=== PATIENT | female | born 1945 | race Caucasian/White ===

== ENCOUNTER 2018-01-31 11:06 | Emergency (ER) | payer MEDICARE, BC ==
[~2018-01-31] VITALS: Ht 165.1 cm; Wt 56.7 kg
--- OUTSIDE RECORDS SUMMARY | ~2018-01-31 | XMS | Clinical Summary ---
Demographics + + + | Address | [address] | | | [place] [address] | + + + | Home Phone | | + + + | Preferred Language | Unknown | + + + | Marital Status | | + + + | Confucianist Affiliation | Unknown | + + + | Race | White | + + + | Ethnic Group | Not or | + + + Author + + + | Organization | Unknown | + + + | Address | Unknown | + + + | Phone | Unavailable | + + + Support + + + + + | Name | Relationship | Address | Phone | + + + + + | JOSE HARRY | ECON | [address] | | | | [place], | | | | | [place] [address] | | + + + + + Care Team Providers + +------+ + | Care Customer Assistance Representative Name | Role | Phone | + +------+ + PP | Unavailable | + +------+ + Source Comments GIUSEPPE is fully live on both [facility] and [facility] InPatient.[facility] Allergies Not on File Current Medications Not on file Active Problems Not on file Social History + +-------+ +--------+------+ | Tobacco Use | Types | Packs/Day | Years | Date | | | | | Used | | + +-------+ +--------+------+ | Never Assessed | | | | | + +-------+ +--------+------+ + + + | Sex Assigned at | Date Recorded | | | | + + + | Not on file | | + + + Plan of Treatment + + + + + | Health Maintenance | Due Date | Last Done | Comments | + + + + + | INFLUENZA VACCINE | | | | | (FLU SHOT) | 8 | | | + + + + + Results Not on filefrom Last 3 Months"
--- OUTSIDE RECORDS SUMMARY | ~2018-01-31 | XMS | Clinical Summary ---
Demographics + + + | Address | [address] | | | [place] [address] | + + + | Home Phone | | + + + | Preferred Language | Unknown | + + + | Marital Status | | + + + | Pentecostal Affiliation | Unknown | + + + [...] [place], | | | | | [place] [address] | | + + + + + Care Team Providers + +------+ + | Care Sheet Catcher Name | Role | Phone | + +------+ + PP | Unavailable | + +------+ + Source Comments GIUSEPPE is fully live on both [facility] and [facility] InPatient.[facility] Allergies Not on File Current Medications [...]
[2018-01-31] MEDS ORDERED: HYDROCHLOROTHIA50 MG PO (11:58)
[2018-01-31] MEDS ORDERED: ROPINIROLE HCL2 MG PO (11:58)
[2018-01-31] MEDS ORDERED: LEVOTHYROXINE100 MCG PO (11:58)
[2018-01-31] MEDS ORDERED: SUMATRIPTAN SU100 MG PO (11:58)
[2018-01-31] MEDS ORDERED: BUTALB-CAFF-AC1 EACH PO (11:59)
[2018-01-31] MEDS ORDERED: ASPIR-LOW81 MG PO (11:59)
[2018-01-31] MEDS ORDERED: MECLIZINE HCL25 MG PO (12:00)
[2018-01-31] MEDS ORDERED: FLAGYL500 MG PO (14:15)
== END 2018-01-31 14:55 | disposition home or self-care (01) ==
LOC: ED 11:06
DX: R19.7 Diarrhea, unspecified (principal); Z88.7 Allergy status to serum and vaccine; Z79.899 Other long term (current) drug therapy; Z79.82 Long term (current) use of aspirin
CPT/HCPCS: 36415; 80053; 81001; 82310; 83970; 85025; 99283; J7030

== ENCOUNTER 2018-04-11 06:20 | Day surgery (SDC) | payer MEDICARE, BC ==
[~2018-04-11] VITALS: Ht 165.1 cm; Wt 58.5 kg
[~2018-04-11 06:20] MED LIST: ASPIR-LOW81 MG PO; BUTALB-CAFF-AC1 EACH PO; CALCIUM600 MG PO; FISH OIL 1,0001 EAC2 NG; FLAGYL500 MG PO; HYDROCHLOROTHIA50 MG PO; LEVOTHYROXINE100 MCG PO; MECLIZINE HCL25 MG PO; MULTIVITAMINS1 EAC7 PO; ROPINIROLE HCL2 MG PO; SUMATRIPTAN SU100 MG PO; VITAMIN C1000 MG
--- NOTE | 2018-04-11 08:36 | NUR ---
04/11/18 0836 Amber Goss PT WOKE UP TALKED WITH SOUNDS OF CHILD CRYING.
--- NOTE | 2018-04-12 07:52 | OR ---
[facility] [address] [place], [place] [address] Signed DATE OF OPERATION: 04/11/2018 SURGEON: Ricky Grace MD PREOPERATIVE DIAGNOSIS: Mother with a history of colonic polyps in her 70s. POSTOPERATIVE DIAGNOSIS: Minimal sigmoid diverticulosis. PROCEDURE: Colonoscopy without biopsy. ESTIMATED BLOOD LOSS: None. 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 She was asked to see me for a followup colonoscopy. She told me her mother had a villous adenomatous polyp removed from her colon in her 70s. Gypsy told me her last colonoscopy was in 2008, while living in [place]. Apparently, they told her to come back in 10 years. In the meantime, she says she is doing well and enjoying her intermediate. In the office, I had given her a pamphlet on colonoscopy and we looked at that along with the risks including, but not limited to gas bloating, crampy abdominal pain, bleeding, perforation, requiring surgery, and missed diagnosis. We also discussed the need for IV conscious sedation. She had expressed understanding and wished to proceed. She does have some positional vertigo, particularly when lying on her left side and so we kept her in the supine position for her procedure. PROCEDURE NOTE: Gypsy was taken into our endoscopy suite and placed in the supine position. She was given divided doses of 175 mcg of fentanyl and 8 mg of Versed in order to cover the procedure. A digital rectal exam was performed and this was unremarkable. The adult colonoscope was introduced and advanced under direct visualization of camera all the way into the cecum. Her prep was good. We did use additional sedation along with abdominal compression in order to get the scope to pass directly into the cecum itself. The scope was then slowly withdrawn. We saw a few diverticula in the sigmoid colon. There was no evidence of any polyps. The rectum was unremarkable. Upon retroflexion of the scope, there was no additional pathology noted above the anal canal. After this, the gas was suctioned out and the colonoscope removed. Gypsy tolerated the procedure quite well. Electronically Signed By: RICKY GRACE MD 04/12/18 0752 PATIENT NAME: GYPSY HARRY OPERATIVE REPORT DATE OF : 49 REPORT #: [id number] PHYSICIAN: RICKY GRACE MD PCP: UNASSIGNED DOCTOR REPORT IS CONFIDENTIAL AND NOT TO BE RELEASED WITHOUT AUTHORIZATION [address] [place] [address] Signed RECOMMENDATIONS: Gypsy will follow up in my office in 5 years for repeat colonoscopy. MD ZAC Real/[place]IR[place] /[id number] cc: MD Darrin Anderson [place] Andrew L Bower, MD Copies: RICKY GRACE MD ~ Electronically Signed By: RICKY GRACE MD 04/12/18 0752 PATIENT NAME: GYPSY HARRY OPERATIVE REPORT DATE OF : 49 REPORT #: [id number] PHYSICIAN: RICKY GRACE MD PCP: UNASSIGNED DOCTOR REPORT IS CONFIDENTIAL AND NOT TO BE RELEASED WITHOUT AUTHORIZATION
== END 2018-04-11 09:03 | disposition home or self-care (01) ==
LOC: DS 06:20 → OPS 06:20 → DS 06:45 → OPS 09:03
PROVIDERS: Colon & Rectal Surgery
PROC: 0DJD8ZZ Inspection of Lower Intestinal Tract, Via Natural or Artificial Opening Endoscopic (ICD-10-PCS; principal; 2018-04-11 06:45)
DX: Z12.11 Encounter for screening for malignant neoplasm of colon (principal); K57.30 Diverticulosis of large intestine without perforation or abscess without bleeding; Z83.71 Family history of colonic polyps; Z91.040 Latex allergy status; Z79.82 Long term (current) use of aspirin; Z79.899 Other long term (current) drug therapy
CPT/HCPCS: 99153; G0500; J2250; J3010; J7120

== ENCOUNTER 2021-05-12 17:34 | Emergency (ER) | payer MEDICARE, BC ==
[~2021-05-12] VITALS: Ht 165.1 cm; Wt 58.5 kg
[2021-05-12] MEDS ORDERED: SERTRALINE HCL25 MG PO (17:41)
--- NOTE | 2021-05-12 18:47 | EKG ---
[facility] [address] [facility] [place], [place] [address] Signed Sinus bradycardia with premature atrial complexes Left axis deviation Nonspecific intraventricular block Cannot rule out Septal infarct , age undetermined Abnormal ECG No previous ECGs available Confirmed by CRISTA MEDINA DO ([id number]) on 05/12/2021 6:46:58 PM Electronically Signed By: CRISTA MEDINA DO 05/12/21 1847 PATIENT NAME: JAY HARRY [facility] Electrocardiogram DATE OF : 49 PHYSICIAN: CRISTA MEDINA DO REPORT #: [id number] REPORT IS CONFIDENTIAL AND NOT TO BE RELEASED WITHOUT AUTHORIZATION
== END 2021-05-12 21:00 | disposition short-term general hospital (02) ==
LOC: ED 17:34
DX: I61.1 Nontraumatic intracerebral hemorrhage in hemisphere, cortical (principal); R56.9 Unspecified convulsions; Z88.7 Allergy status to serum and vaccine; Z91.040 Latex allergy status; Z79.899 Other long term (current) drug therapy; Z79.82 Long term (current) use of aspirin; Z20.822 Contact with and (suspected) exposure to COVID-19
CPT/HCPCS: 70450; 80053; 83735; 84484; 85025; 93005; 93010; 96374; 99285-25; C9803; J1953; U0003

== ENCOUNTER 2023-05-26 06:23 | Day surgery (SDC) | payer MEDICARE, BC ==
[~2023-05-26] VITALS: Ht 165.1 cm; Wt 57.0 kg
[~2023-05-26 06:23] MED LIST changes: +ACETAMINOPHEN325 M1 PO; +MAGNESIUM400 MG PO; +NIGHTTIME SLEEP25 M1 PO; +SERTRALINE HCL25 MG PO; +TYLENOL PM EXS1 EACH PO
[2023-05-26 06:39] VITALS: BP 131/54
--- NOTE | 2023-05-26 07:15 | NUR ---
EXERCISED MINISTRY OF PRESENCE PT AND TALKED OF LIFE ADVENTURES AND PT'S PAST MEDICAL TRIALS. CONSENTED TO PRAYER. PRAYED FOR SUCCESSFUL PROCEDURES AND AWARENESS OF DIVINE PRESENCE.
--- NOTE | 2023-05-26 08:18 | NUR ---
05/26/23 0818 Conchis,Elvie 0806 PT ARRIVED TO PACU ON 3L VIA MASK, PT ASLEEP AND RESP EVEN AND UNLABORED. 0816 PT WAKES EASILY AND REORIENTED TO PACU, PT EASILY FALLS BACK TO SLEEP. 0818 MD AT BEDSIDE PT WAKES AND IS TALKING TO MD.
[2023-05-26 08:58] VITALS: BP 125/68
--- NOTE | 2023-05-26 11:05 | OR ---
[facility] [address] [place], [place] [address] Signed DATE OF OPERATION: 05/26/2023 SURGEON: Ricky Grace MD PREOPERATIVE DIAGNOSES: 1. Chronic intermittent recurring diarrhea. 2. Mother with colonic polyps in her 70s. 3. Minimal diverticulosis. 4. Anal fissure in 1969. 5. Daily magnesium oxide. POSTOPERATIVE DIAGNOSES: 1. Minimal sigmoid diverticulosis. 2. Long redundant colon. 3. Tortuous sigmoid colon. PROCEDURE: Colonoscopy with cold biopsies of the distal right colon, left colon, sigmoid colon and the rectum. ESTIMATED BLOOD LOSS: None. 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 She said her memory has never been the same. In addition, her mother just recently in November of this year. That has added to her depression. She frequently talks about recurring chronic intermittent diarrhea. She said she has a bowel movement every few days and sometimes it is diarrhea. She said no one around her has been sick. They have used the same well water for years at their mother's home. We know her mother had a villous adenomatous polyp removed in her 70s. Gypsy had a colonoscopy in 2008 at the age of 63, she believes with the [facility] in [place], [place]. She cannot recall the results. I helped her with a colonoscopy in 2018 at the age of 72 again for the diarrhea. She had minimal diverticulosis. She is also describing a letter from what appears to be the [facility] from GI department. She thinks she is supposed to go there for some additional workup. So far, her blood work and stool studies have been negative. I encouraged her to call the number and check in with the clinic to see with respect to the above. In the meantime, she was asked to see me here as a local general surgeon. In my office, I Electronically Signed By: RICKY GRACE MD 05/26/23 1105 PATIENT NAME: GYPSY HARRY GENE OPERATIVE REPORT DATE OF : 49 REPORT #: [id number] PHYSICIAN: RICKY GRACE MD PCP: HERMILA CASIANO PAC REPORT IS CONFIDENTIAL AND NOT TO BE RELEASED WITHOUT AUTHORIZATION [facility] [address] [place] [id number] Signed gave her a pamphlet on colonoscopy. We had reviewed the nature of the test. There is risk including, but not limited to gas bloating, crampy abdominal pain, bleeding, perforation requiring surgery, and missed diagnosis. We also reviewed the written instructions for her bowel prep line by line. She used our same prep previously. She used 8 mg of Versed and 175 mcg of fentanyl on her last colonoscopy in 2018. She said her usually will take her home afterwards. She has expressed understanding and would like to proceed with colonoscopy with biopsies. PROCEDURE NOTE: Gypsy was taken into our endoscopy suite and placed in the left lateral decubitus position. She was given a total of 5 mg of Versed and 100 mcg of fentanyl. A digital rectal exam was performed and this was unremarkable. Really no external hemorrhoids. Good sphincter tone. No masses noted. The adult colonoscope was introduced and advanced under direct visualization of the camera without difficulty. She has a tortuous sigmoid colon and that took a few minutes to get through. Then, we found that she does have a long redundant colon as well. We required some additional abdominal compression in order to advance the scope. Unfortunately, her prep was quite excellent. We made our way around to the appendiceal orifice. We could easily see the ileocecal valve. We tried multiple times to turn the camera into the terminal ileum without success. The scope was then slowly withdrawn. We took several pictures throughout for photodocumentation. She had no evidence of any inflammatory changes throughout the colon. There were no polyps. We took several random biopsies throughout the colon as listed above. We took an additional biopsy of the rectum. Once in the rectum, the scope had been retroflexed and really has no internal hemorrhoid columns. After this, the gas was suctioned out and the colonoscope removed. Gypsy tolerated the procedure quite well. RECOMMENDATIONS: I will see Gypsy back in my office in 7 to 14 days to review her results. In addition, she had sinus bradycardia in my office as well as today with her heart rate in the 50s. She noted some PVCs, but also some couplets. Of course, the frequency increased with the stimulation of the scope. She might review that with her primary care provider. She seems to be asymptomatic by history. I have also encouraged her to call the number on the letter she received [facility] and continue her workup for her diarrhea if she so desires. Ricky Grace MD Electronically Signed By: RICKY GRACE MD 05/26/23 1105 PATIENT NAME: GYPSY HARRY [facility] OPERATIVE REPORT DATE OF : 49 REPORT #: [id number] PHYSICIAN: RICKY GRACE MD PCP: HERMILA CASIANO REPORT IS CONFIDENTIAL AND NOT TO BE RELEASED WITHOUT AUTHORIZATION [address] [place] [address] Signed ALB/MODL /[id number] cc: MD Hermila Real PA-C Copies: RICKY GRACE MD, ERIKA PAC ~ Electronically Signed By: RICKY GRACE MD 05/26/23 1105 PATIENT NAME: GYPSY HARRY OPERATIVE REPORT DATE OF : 49 REPORT #: [id number] PHYSICIAN: RICKY GRACE MD PCP: HERMILA CASIANO REPORT IS CONFIDENTIAL AND NOT TO BE RELEASED WITHOUT AUTHORIZATION
--- NOTE | 2023-05-30 16:53 | PATH ---
[facility] [address] [place], [place] [address] Signed SPECIMEN(S): A ASCENDING/RIGHT COLON BIOPSY SPECIMEN(S): B DESCENDING/LEFT COLON BIOPSY SPECIMEN(S): C SIGMOID COLON BIOPSY SPECIMEN(S): D RECTUM COLON BIOPSY SPECIMEN SOURCE: A. ASCENDING/RIGHT COLON BIOPSY B. DESCENDING/LEFT COLON BIOPSY C. SIGMOID COLON BIOPSY D. RECTUM COLON BIOPSY CLINICAL HISTORY: Pre: Diverticulosis and chronic diarrhea. Post: Diverticulosis. FINAL PATHOLOGIC DIAGNOSIS: A. Ascending / right colon biopsy: - Benign colonic mucosa, negative for pathologic inflammation or epithelial dysplasia. B. Descending / left colon biopsy: - Benign colonic mucosa, negative for pathologic inflammation or epithelial dysplasia. C. Sigmoid colon biopsy: - Benign colonic mucosa, negative for specific diagnostic abnormality. - Negative for pathologic inflammation. D. Rectum: - Hyperplastic polyp (one fragment). JVR:[facility] MICROSCOPIC EXAMINATION: Histologic sections of all submitted blocks are examined by light microscopy. These findings, together with the gross examination, support the pathologic diagnosis. GROSS DESCRIPTION: A. The specimen, labeled and designated "Stone, T, 1." and designated on the requisition "ascending/right biopsy," is received in formalin and consists of one harry soft tissue fragment that is 0.2 cm in greatest dimension. The specimen is entirely submitted in (A1). B. The specimen, labeled and designated "Stone, T, 2." and designated on the requisition "descending/right biopsy," is received in formalin and consists of one harry soft tissue fragment that is 0.2 cm PATIENT NAME: JAY HARRY GENE PATHOLOGY DATE OF : 49 REPORT #: [id number] PHYSICIAN: KISHORE MARIN PCP: TIAN CASIANO PAC REPORT IS CONFIDENTIAL AND NOT TO BE RELEASED WITHOUT AUTHORIZATION [facility] [address] [place], [place] [address] Signed in greatest dimension. The specimen is entirely submitted in (B1). C. The specimen, labeled and designated "Stone, T, 3." and designated on the requisition "sigmoid biopsy," is received in formalin and consists of one harry soft tissue fragment that is 0.2 cm in greatest dimension. The specimen is entirely submitted in (C1). D. The specimen, labeled and designated "Stone, T, 4." and designated on the requisition "rectum biopsy," is received in formalin and consists of one harry soft tissue fragment that is 0.3 cm in greatest dimension. The specimen is entirely submitted in (D1). FB (under the direct supervision of a pathologist) The Gross Description was prepared using a voice recognition system. The report was reviewed for accuracy; however, sound-alike word errors, addition and/or deletions may occur. If there is any question about this report, please contact Client Services. PERFORMING LABORATORY: Technical component was performed by [facility], [address] [place] [id number] (CLIA# [id number]). Professional interpretation was performed by [facility], [address] [place] [id number] (CLIA#: [id number]). Diagnostician: Johnie Bales MD Pathologist Electronically Signed 05/30/2023 Copies: ~ PATIENT NAME: JAY HARRY PATHOLOGY DATE OF : 49 REPORT #: [id number] PHYSICIAN: KISHORE PATHOLOGY PCP: TIAN CASIANO PAC REPORT IS CONFIDENTIAL AND NOT TO BE RELEASED WITHOUT AUTHORIZATION
== END 2023-05-26 09:06 | disposition home or self-care (01) ==
LOC: DS 06:23 → OPS 06:23 → DS 07:30 → OPS 07:30
PROVIDERS: ATTEND Colon & Rectal Surgery
PROC: 0DBE8ZX Excision of Large Intestine, Via Natural or Artificial Opening Endoscopic, Diagnostic (ICD-10-PCS; 2023-05-26)
PROC: 0DBP8ZX Excision of Rectum, Via Natural or Artificial Opening Endoscopic, Diagnostic (ICD-10-PCS; principal; 2023-05-26 07:30)
DX: Z12.11 Encounter for screening for malignant neoplasm of colon (principal); K57.30 Diverticulosis of large intestine without perforation or abscess without bleeding; K63.89 Other specified diseases of intestine; Q43.8 Other specified congenital malformations of intestine; K62.1 Rectal polyp; E03.9 Hypothyroidism, unspecified; K52.9 Noninfective gastroenteritis and colitis, unspecified; Z83.71 Family history of colonic polyps; Z79.899 Other long term (current) drug therapy
CPT/HCPCS: 88305; 99153; G0500; J0690; J2250; J3010; J7121